=== PATIENT | male | born 1980 | race Caucasian/White ===

== ENCOUNTER 2017-04-13 17:56 | Emergency (ER) | payer OTHER ==
[~2017-04-13] VITALS: Ht 170.2 cm; Wt 72.0 kg
[~2017-04-13 17:56] MED LIST: HYDR-3533 PO; SULF-154 PO
[2017-04-13 18:08] VITALS: BP 131/80; PULSE 128; RESP 20; O2SAT 99
--- NOTE | 2017-04-13 19:00 | PD ---
HPI Chief Complaint: Psychiatric Symptoms Time Seen by Provider: 18:53 Travel History International Travel<30 days: No Contact w/Intl Traveler<30days: No Traveled to known affect area: No History of Present Illness HPI 36-year-old male here for evaluation of BA. Patient was BA by police after he made suicidal ideations to gas fitter helper. No medical issues. States he was drinking today and got on argument with significant other and made some statements that made the gas fitter helper bring him here. Per BA he made suicidal statements about killing himself with a gun. Denies this. Intoxicated on alcohol. No drugs per patient. History of MRSA. History limited secondary to intoxication. PFSH Past Medical History ADHD: Yes Bipolar Disorder: Yes Anxiety: Yes Depression: Yes Cancer: No Cardiovascular Problems: No Diabetes: No Diminished Hearing: No Endocrine: No Gastrointestinal Disorders: Yes Genitourinary: No Hepatitis: Yes (HEP C) Immune Disorder: No Implanted Vascular Access Dvce: No Musculoskeletal: No Neurologic: No Psychiatric: No Reproductive: No Respiratory: No Integumentary: Yes (Hepatitis) Immunizations Current: Yes Past Surgical History Other Surgery: No (LIVER BIOPSY) Social History Alcohol Use: Yes (6 BEERS/DAY) Tobacco Use: Yes (1 PPD) Substance Use: Yes ([facility]) Allergies-Medications (Allergen,Severity, Reaction): Coded Allergies: *MDRO Multi-Drug Resistant Organism (Verified Adverse Reaction, Unknown, 08/24/15) 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 Reported Meds & Prescriptions Reported Meds & Active Scripts Active Septra Ds (Trimethoprim/Sulfamethoxazole) Tab 1 Tab PO BID Lortab 5 mg/325 mg (Hydrocodone/Acetaminophen 5 mg/325 mg) 1 Tab 1 Tab PO Q8HR PRN Review of Systems ROS Limitations: Intoxication Except as stated in HPI: all other systems reviewed are Neg Physical Exam Exam Limitations: Intoxication Narrative GENERAL: SKIN: Warm and dry. HEAD: Atraumatic. Normocephalic. EYES: Pupils equal and round. No scleral icterus. No injection or drainage. ENT: No nasal bleeding or discharge. Mucous membranes pink and moist. TOngue is midline. No uvula deviation. NECK: Trachea midline. No JVD. CARDIOVASCULAR: Regular rate and rhythm. No murmurs, S3, S4. RESPIRATORY: No accessory muscle use. Clear to auscultation. Breath sounds equal bilaterally. GASTROINTESTINAL: Abdomen soft, non-tender, nondistended. Hepatic and splenic margins not palpable. MUSCULOSKELETAL: Extremities without clubbing, cyanosis, or edema. No obvious deformities. Full ROM of the upper and lower extremities bilaterally. 2+ pulses. NEUROLOGICAL: Awake and alert. No obvious cranial nerve deficits. Motor grossly within normal limits. Five out of 5 muscle strength in the arms and legs. Normal speech. PSYCHIATRIC: Intoxication mood and affect; insight and judgment normal. Data Data Last Documented VS Vital Signs Date Time Temp Pulse Resp B/P Pulse Ox O2 Delivery O2 Flow Rate FiO2 04/13/17 18:08 128 20 131/80 99 Orders Complete Blood Count With Diff (04/13/17 18:19) Comprehensive Metabolic Panel (04/13/17 18:19) Psych Screen (04/13/17 18:19) Drug Screen, Random Urine (04/13/17 18:19) Alcohol (Ethanol) (04/13/17 18:19) Salicylates (Aspirin) (04/13/17 18:19) Tylenol (Acetaminophen) (04/13/17 18:19) Drug Screen, Random Urine (04/13/17 18:18) Alcohol (Ethanol) (04/13/17 18:18) Urinalysis - C+S If Indicated (04/13/17 18:18) MDM Medical Decision Making Medical Screen Exam Complete: Yes Emergency Medical Condition: Yes Medical Record Reviewed: Yes Differential Diagnosis Depression versus suicidal ideation versus anxiety versus adjustment disorder versus mood disorder versus bipolar disorder versus schizophrenia versus paranoid disorder versus psychosis versus substance abuse versus alcohol abuse versus alcohol induced psychosis versus homicidality addition versus cutting versus personality disorder Narrative Course 36-year-old male that presents to the ED for evaluation of psych. Patient was properly examined and was found to have signs and symptoms consistent psychiatric illness. No sign of acute medical distress. Patient does appear to be intoxicated. Patient eminently he wants to leave. Labs were ordered. Patient was medically cleared. Okay to be seen by psych. Mental health screening was discussed with the patient. Diagnosis Primary Impression: Suicidal ideation Thomas Braun Apr 13, 2017 19:00
[2017-04-13 19:12] LABS: AMPHETAMINE, URINE NEG (NEG); BARBITURATES, URINE NEG (NEG); COCAINE, URINE POS (NEG)
[2017-04-13 19:15] VITALS: BP 143/65; PULSE 98; RESP 18; O2SAT 99
[2017-04-13] MEDS ORDERED: HALOPERIDOL LACTATE 5 MG/ML AMP ONE (19:24)
[2017-04-13 19:26] LABS: BLOOD, URINE NEG (NEG); COMMENT (UR) CULT NOT INDICATED; CULTURE IF INDICATED CULT NOT INDICATED; GLUCOSE,URINE NEG (NEG); HYALINE CAST, URINE 5 /lpf (RARE); KETONE, URINE TRACE mg/dL (NEG); MUCUS URINE FEW /lpf (OCC); NITRITE,URINE NEG (NEG); PH, URINE 5.5 (5.0-8.5); URINE COLOR YELLOW (YELLW/STRAW)
[2017-04-13] MEDS ORDERED: HALOPERIDOL LACTATE 5 MG/ML AMP IM ONE (19:30)
--- NOTE | 2017-04-13 19:39 | PD ---
Physical Exam Date Seen by Provider: Apr 13, 2017 Time Seen by Provider: 19:00 Narrative For full H&P please see previous providers note. Data Data Last Documented VS Vital Signs Date Time Temp Pulse Resp B/P Pulse Ox O2 Delivery O2 Flow Rate FiO2 04/13/17 19:15 98 18 143/65 99 Room Air Orders Complete Blood Count With Diff (04/13/17 18:19) Comprehensive Metabolic Panel (04/13/17 18:19) Psych Screen (04/13/17 18:19) Drug Screen, Random Urine (04/13/17 18:19) Alcohol (Ethanol) (04/13/17 18:19) Salicylates (Aspirin) (04/13/17 18:19) Tylenol (Acetaminophen) (04/13/17 18:19) Drug Screen, Random Urine (04/13/17 18:18) Alcohol (Ethanol) (04/13/17 18:18) Urinalysis - C+S If Indicated (04/13/17 18:18) ^ Sitter (04/13/17 19:17) Restraints Non-Violent EJ.Q3H (04/13/17 19:17) Haloperidol Inj (Haldol Inj) (04/13/17 19:30) Haloperidol Inj (Haldol Inj) (04/13/17 19:24) Labs Laboratory Tests Test 04/13/17 04/13/17 04/13/17 18:21 18:25 23:47 Ethyl Alcohol Level 175 MG/DL Urine Color YELLOW Urine Turbidity CLEAR Urine pH 5.5 Urine Specific [place] 1.014 Urine Protein TRACE mg/dL Urine Glucose (UA) NEG mg/dL Urine Ketones TRACE mg/dL Urine Occult Blood NEG Urine Nitrite NEG Urine Bilirubin NEG Urine Urobilinogen 2.0 MG/DL Urine Leukocyte Esterase NEG Urine WBC 2 /hpf Urine Hyaline Casts 5 /lpf Urine Mucus FEW /lpf Microscopic Urinalysis Comment CULT NOT INDICATED Urine Opiates Screen NEG Urine Barbiturates Screen NEG Urine Amphetamines Screen NEG Urine Benzodiazepines Screen NEG Urine Cocaine Screen POS Urine Cannabinoids Screen POS White Blood Count 11.6 TH/MM3 Red Blood Count 5.11 MIL/MM3 Hemoglobin 14.3 GM/DL Hematocrit 43.6 % Mean Corpuscular Volume 85.3 FL Mean Corpuscular Hemoglobin 28.0 PG Mean Corpuscular Hemoglobin 32.9 % Concent Red Cell Distribution Width 14.8 % Platelet Count 193 TH/MM3 Mean Platelet Volume 9.8 FL Neutrophils (%) (Auto) 77.1 % Lymphocytes (%) (Auto) 14.5 % Monocytes (%) (Auto) 7.0 % Eosinophils (%) (Auto) 0.4 % Basophils (%) (Auto) 1.0 % Neutrophils # (Auto) 9.0 TH/MM3 Lymphocytes # (Auto) 1.7 TH/MM3 Monocytes # (Auto) 0.8 TH/MM3 Eosinophils # (Auto) 0.0 TH/MM3 Basophils # (Auto) 0.1 TH/MM3 CBC Comment DIFF FINAL Differential Comment Total Bilirubin 0.3 MG/DL Alkaline Phosphatase 52 U/L Total Protein 8.2 GM/DL Salicylates Level 6.5 MG/DL MDM Supervised Visit with LISA: No Narrative Course Pt was brought to [facility] under a Moreno Act. He became uncooperative and combative. Pt was wandering out of his room not wanting to go back in. His behavior was threatening to staff and put him at risk for self harm. Due to these circumstances pt was placed in 4 point restraints. He continued to roll around in the bed in the restraints threatening to "rip his shoulder". At this time Haldol IM was ordered to prevent self inflicted injury. Diagnosis Primary Impression: Suicidal ideation Kelli Soni Apr 13, 2017 19:39
[2017-04-13 23:54] LABS: BASOPHIL # 0.1 TH/MM3 (0-0.2); EOSINOPHIL % 0.4 % (0.0-4.0); HEMATOCRIT 43.6 % (39.0-51.0); HEMO FLAGS DIFF FINAL; LYMPH % 14.5 % (9.0-44.0); LYMPHOCYTE # 1.7 TH/MM3 (1.0-4.8); MEAN CELL VOLUME 85.3 FL (80.0-100.0); MEAN CORPUSCULAR HGB CONC 32.9 % (32.0-36.0); NEUT % 77.1 % (16.0-70.0); PLATELET COUNT 193 TH/MM3 (150-450); RED BLOOD COUNT 5.11 MIL/MM3 (4.50-5.90); RED CELL DISTRIBUTION WIDTH 14.8 % (11.6-17.2); WHITE BLOOD COUNT 11.6 TH/MM3 (4.0-11.0)
[2017-04-14 00:21] LABS: ALKALINE PHOSPHATASE 52 U/L (45-117); TOTAL BILIRUBIN ADULT 0.3 MG/DL (0.2-1.0)
[2017-04-14 00:33] LABS: ALT (GPT) 29 U/L (12-78); ANION GAP 9 MEQ/L (5-15); AST (GOT) 30 U/L (15-37); BICARBONATE 24.6 MEQ/L (21.0-32.0); BLOOD UREA NITROGEN 13 MG/DL (7-18); CHLORIDE 109 MEQ/L (98-107); GLOMERULAR FILTRATION RATE 72 ML/MIN (>89); SODIUM (NA) 143 MEQ/L (136-145)
[2017-04-14 00:40] LABS: POTASSIUM 3.7 MEQ/L (3.5-5.1)
[2017-04-14 00:41] LABS: ACETAMINOPHEN LESS THAN 2.0 MCG/ML (10.0-30.0)
[2017-04-14 01:33] VITALS: BP 116/72; PULSE 80; RESP 16; O2SAT 99
[2017-04-14 06:24] VITALS: BP 116/70; PULSE 78; RESP 18; O2SAT 99
--- NOTE | 2017-04-14 10:14 | PD ---
History of Present Illness Chief Complaint: Psychiatric Symptoms Time Seen by Provider: 10:15 Travel History International Travel<30 Days: No Contact w/Intl Traveler<30days: No Known affected area: No Legal Status Legal Status: Moreno Act Moreno Act Signed By: Marisabel Duarte History of Present Illness: History of Present Illness HPI 36-year-old male with hx of alcohol and substance use disorder here under a BA initiated by JOSHUA. Patient was BA by police after he made suicidal ideations to line maintenance technician. As per the report the patient called the police to report that there was a male running around his neighborhood. When the police arrived he told them that he wanted to be arrested and made claims to have a gun and a knife in his possession and wanted the police to shoot him. He then staed that he wanted to by any means possible. The patient was intoxicated at the time he made the statements and presented to ED with BAL 175 and positive toxicology for cocaine and cannabinoids. EMR is reviewed. Prior contact with [facility] in 2014 under a BA for similar reasons and then in 2013 a voluntary visit for depression. He has not had any psychiatric admissions as an adult. Alert and oriented x4. At this time he is clinically sober. His speech is clear and logical. He does not appear to be responding to internal stimuli. Can I go home? I said what I said because I wanted to get away from my situation. The copying machine mechanic wouldn't take me if I didn't say that I wanted to hurt myself ". He reports that he was involved in a difficult situation at home and wanted to leave the situation. PFSH Past Medical History ADHD: Yes Bipolar Disorder: Yes Anxiety: Yes Depression: Yes Cancer: No Cardiovascular Problems: No Diabetes: No Diminished Hearing: No Endocrine: No Gastrointestinal Disorders: Yes Genitourinary: No Hepatitis: Yes (HEP C) Immune Disorder: No Implanted Vascular Access Dvce: No Musculoskeletal: No Neurologic: No Psychiatric: No Reproductive: No Respiratory: No Integumentary: Yes (Hepatitis) Immunizations Current: Yes Past Surgical History Other Surgery: No (LIVER BIOPSY) Psychiatric History Psychiatric History Hx Psychiatric Treatment: ADHD, DEPRESSION, ANXIETY, INTERMITTENT EXPLOSIVE DISORDER Receives medication from [facility]. Next appointmet April 28- . History of Inpatient Treatment: Yes Guns or firearms in home: No Social History single male. Lives with his girlfriend. Hx Alcohol Use: Yes (6 BEERS/DAY) Hx Tobacco Use: Yes (1 PPD) Hx Substance Use: Yes (OCCAISIONAL MARJUANA, herion, cocaine ) Substance Use Type: Alcohol, Cocaine Hx of Substance Use Treatment: No Family Psychiatric History negative Allergies-Medications (Allergen,Severity, Reaction): Coded Allergies: *MDRO Multi-Drug Resistant Organism (Verified Adverse Reaction, Unknown, 08/24/15) 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 Reported Meds & Prescriptions Reported Meds & Active Scripts Active Review of Systems Except as stated in HPI: all other systems reviewed are Neg Exam Alert: Yes Piru: Person (ox4) Mood: Calm Affect: Appropriate Speech: Clear, Logical Eye Contact: Normal Memory Intact: Comment (no impairmetn) Hallucinations: Other (negative) Delusions: No Suicidal: Ideation (deneis any) Homicidal: Ideation (deneis any) Insight/Judgement Poor. Poor MDM Medical Decision Making Medical Record Reviewed: Yes Assessment/Plan 36 year old male with hx of substance use as well as hx of depression, adhd and IED who in context of alcohol and cocaine intoxication called the police and reported suicidal ideation. At this time the patient is clinically sober and he admits to having fabricated suicidality in order to leave a specific situation and come to the hospital. At this time he is requesting discharge At this time not suicidal or homicidal, no psychosis. Does not meet criteria for continued BA. Will lift. Discharge and follow up with [facility]. . Orders Complete Blood Count With Diff (04/13/17 18:19) Comprehensive Metabolic Panel (04/13/17 18:19) Psych Screen (04/13/17 18:19) Alcohol (Ethanol) (04/13/17 18:19) Salicylates (Aspirin) (04/13/17 18:19) Tylenol (Acetaminophen) (04/13/17 18:19) Drug Screen, Random Urine (04/13/17 18:18) Alcohol (Ethanol) (04/13/17 18:18) Urinalysis - C+S If Indicated (04/13/17 18:18) ^ Sitter (04/13/17 19:17) Restraints Non-Violent EJ.Q3H (04/13/17 19:17) Haloperidol Inj (Haldol Inj) (04/13/17 19:30) Haloperidol Inj (Haldol Inj) (04/13/17 19:24) Diet Regular Basic (04/14/17 Breakfast) Results Vital Signs Date Time Temp Pulse Resp B/P Pulse Ox O2 Delivery O2 Flow Rate FiO2 04/14/17 06:24 78 18 116/70 99 Room Air 04/14/17 01:33 80 16 116/72 99 Room Air 04/13/17 19:15 98 18 143/65 99 Room Air 04/13/17 18:08 128 20 131/80 99 Laboratory Tests Test 04/13/17 04/13/17 04/13/17 18:21 18:25 23:47 Ethyl Alcohol Level 175 145 Urine Color YELLOW Urine Turbidity CLEAR Urine pH 5.5 Urine Specific [place] 1.014 Urine Protein TRACE Urine Glucose (UA) NEG Urine Ketones TRACE Urine Occult Blood NEG Urine Nitrite NEG Urine Bilirubin NEG Urine Urobilinogen 2.0 Urine Leukocyte Esterase NEG Urine WBC 2 Urine Hyaline Casts 5 Urine Mucus FEW Microscopic Urinalysis Comment CULT NOT INDICATED Urine Opiates Screen NEG Urine Barbiturates Screen NEG Urine Amphetamines Screen NEG Urine Benzodiazepines Screen NEG Urine Cocaine Screen POS Urine Cannabinoids Screen POS White Blood Count 11.6 Red Blood Count 5.11 Hemoglobin 14.3 Hematocrit 43.6 Mean Corpuscular Volume 85.3 Mean Corpuscular Hemoglobin 28.0 Mean Corpuscular Hemoglobin 32.9 Concent Red Cell Distribution Width 14.8 Platelet Count 193 Mean Platelet Volume 9.8 Neutrophils (%) (Auto) 77.1 Lymphocytes (%) (Auto) 14.5 Monocytes (%) (Auto) 7.0 Eosinophils (%) (Auto) 0.4 Basophils (%) (Auto) 1.0 Neutrophils # (Auto) 9.0 Lymphocytes # (Auto) 1.7 Monocytes # (Auto) 0.8 Eosinophils # (Auto) 0.0 Basophils # (Auto) 0.1 CBC Comment DIFF FINAL Differential Comment Sodium Level 143 Potassium Level 3.7 Chloride Level 109 Carbon Dioxide Level 24.6 Anion Gap 9 Blood Urea Nitrogen 13 Creatinine 1.15 Estimat Glomerular Filtration 72 Rate Random Glucose 62 Calcium Level 8.9 Total Bilirubin 0.3 Aspartate Amino Transf 30 (AST/SGOT) Alanine Aminotransferase 29 (ALT/SGPT) Alkaline Phosphatase 52 Total Protein 8.2 Albumin 4.2 Salicylates Level 6.5 Acetaminophen Level LESS THAN 2.0 Diagnosis Primary Impression: Substance induced mood disorder Additional Impressions: alcohol abuse w intoxication Cocaine abuse Psychiatrically Cleared: Yes Disposition: 01 DISCHARGE HOME Condition: Stable Problem Qualifiers Hanna Isbell Apr 14, 2017 10:14
== END 2017-04-14 10:50 | disposition home or self-care (01) ==
LOC: NEDAMB 17:56 → NEPD 04-14 10:50
DX: R45.851 Suicidal ideations (principal); F39 Unspecified mood [affective] disorder; F10.129 Alcohol abuse with intoxication, unspecified; F14.129 Cocaine abuse with intoxication, unspecified; Y90.6 Blood alcohol level of 120-199 mg/100 ml; F17.210 Nicotine dependence, cigarettes, uncomplicated; B19.20 Unspecified viral hepatitis C without hepatic coma; F31.9 Bipolar disorder, unspecified
CPT/HCPCS: 80053; 80307; 81001; 85025; 96372; 99285; J1630

== ENCOUNTER 2017-05-29 15:03 | Emergency (ER) | payer SELFPAY ==
[~2017-05-29] VITALS: Ht 170.2 cm; Wt 72.0 kg
[2017-05-29 15:04] VITALS: BP 143/81; PULSE 113; RESP 16; TEMP 98.3; O2SAT 98
[2017-05-30] MEDS ORDERED: CEPH-460 PO (14:58)
== END 2017-05-29 16:30 | disposition left against medical advice (07) ==
LOC: NED 15:03
DX: R21 Rash and other nonspecific skin eruption (principal); Z53.21 Procedure and treatment not carried out due to patient leaving prior to being seen by health care provider
CPT/HCPCS: 99281

== ENCOUNTER 2017-05-30 11:40 | Emergency (ER) | payer SELFPAY ==
[~2017-05-30] VITALS: Ht 165.1 cm; Wt 70.5 kg
[2017-05-30] MEDS ORDERED: CEPH-460 PO (14:58)
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
== END 2017-05-30 15:15 | disposition home or self-care (01) ==
LOC: NEPK 11:40
DX: S80.812A Abrasion, left lower leg, initial encounter (principal); S80.811A Abrasion, right lower leg, initial encounter; L08.9 Local infection of the skin and subcutaneous tissue, unspecified; B19.20 Unspecified viral hepatitis C without hepatic coma; F90.9 Attention-deficit hyperactivity disorder, unspecified type; F31.9 Bipolar disorder, unspecified; F41.9 Anxiety disorder, unspecified; F17.200 Nicotine dependence, unspecified, uncomplicated; V18.4XXA Pedal cycle driver injured in noncollision transport accident in traffic accident, initial encounter
CPT/HCPCS: 99283

== ENCOUNTER 2017-07-03 13:10 | Emergency (ER) | payer SELFPAY ==
[~2017-07-03 13:10] MED LIST changes: +CEPH-460 PO; -HYDR-3533 PO; -SULF-154 PO
[2017-07-03 13:11] VITALS: BP 143/83; PULSE 99; RESP 15; TEMP 98.2; O2SAT 99
--- NOTE | 2017-07-03 13:21 | PD ---
Physical Exam Time Seen by Provider: 13:18 Narrative 36yo M c/o left foot wound infection. Wound from a week ago and infection started a few days ago. Says he walks a lot and his flip flops rub his feet wrong. Denies fever, vomiting. Patient seen in triage. VS reviewed. Patient awaiting bed placement. Data Data Last Documented VS Vital Signs Date Time Temp Pulse Resp B/P (MAP) Pulse Ox O2 Delivery O2 Flow Rate FiO2 07/03/17 13:11 98.2 99 15 143/83 (103) 99 MDM Supervised Visit with LISA: Kelsey Barnhart Jul 03, 2017 13:21
--- NOTE | 2017-07-03 13:42 | PD ---
HPI Chief Complaint: Skin Problem Time Seen by Provider: 13:42 Travel History International Travel<30 days: No Contact w/Intl Traveler<30days: No Traveled to known affect area: No History of Present Illness HPI 36- year old male presents to the ED complaining of left foot pain. The patient reports that he has been wearing flip flops, and where the shoe rubs against his foot is where the pain is along with an abrasion and ulceration. He reports that he had both for the past week, only now it is getting worse. He reports that he took ibuprofen for the pain, but had no relief. He reports that currently his pain is a 10/10. PFSH Past Medical History ADHD: Yes Bipolar Disorder: Yes Anxiety: Yes Depression: Yes Cancer: No Cardiovascular Problems: No Diabetes: No Diminished Hearing: No Endocrine: No Gastrointestinal Disorders: Yes Genitourinary: No Hepatitis: Yes (HEP C) Immune Disorder: No Implanted Vascular Access Dvce: No Musculoskeletal: No Neurologic: No Psychiatric: No Reproductive: No Respiratory: No Integumentary: Yes (Hepatitis) Immunizations Current: Yes Past Surgical History Other Surgery: No (LIVER BIOPSY) Social History Alcohol Use: No Tobacco Use: No Substance Use: No Allergies-Medications (Allergen,Severity, Reaction): Coded Allergies: *MDRO Multi-Drug Resistant Organism (Verified Adverse Reaction, Unknown, ) 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 Reported Meds & Prescriptions Reported Meds & Active Scripts Active Bactrim DS (Sulfamethoxazole-Trimethoprim) 800-160 Mg Tab 1 Tab PO BID Keflex (Cephalexin) 500 Mg Cap 500 Mg PO Q6H Review of Systems General / Constitutional: No: Fever, Chills, Weight Gain, Weight Loss, Other Eyes: No: Diploplia, Blurred Vision, Photophobia, Drainage, Redness, Foreign Body Sensation, Pain, Tearing, Blind Spots, Visual changes, Blindness, Other HENT: No: Headaches, Vertigo, Lightheadedness, Sore Throat, Rhinitis, Rhinorrhea, Congestion, Nosebleed, Neck Stiffness, Neck Pain, Masses, Gingival Bleeding, Dental Difficulties, Ear Discharge, Earache, Other Cardiovascular: No: Chest Pain or Discomfort, Palpitations, Irregular Rhythm, Tachycardia, Diaphoresis, Syncope, Dyspnea on exertion, Varicosities, Edema, Cyanosis, Varicosities, Phlebitis, Claudication, Other Respiratory: No: Cough, Shortness of Breath, Wheezing, Sneezing, Orthopnea, Hemoptysis, Stridor, Night Sweats, Pleuritic Pain, Other Gastrointestinal: No: Nausea, Vomiting, Diarrhea, Abdominal Pain, Hematemesis, Hematochezia, Constipation, Changes in Bowel Habits, Indigestion, Dysphagia, Loss of Appetite, Other Genitourinary: No: Urgency, Frequency, Dysuria, Nocturia, Hematuria, Decreased Urinary Output, Oliguria, Hesitancy, Dribbling, Incontinence, Pelvic Pain, Flank Pain, Dyspareunia, Discharge, Dysmenorrhea, Menorrhagia, Metorrhagia, Vaginal Bleeding, Other Musculoskeletal: Positive: Pain (Left foot), No: Myalgias, Arthralgias, Limited ROM, Weakness, Cramping, Edema, Atrophy, Other Skin: Positive Other (Ulcer and abrasion to left foot ), No Rash, No Itching, No Dryness, No Lumps, No Hives, No Change in Pigmentation, No Change in nails, No Alopecia, No Lesions, No Breast Lumps, No Breast Tenderness, No Breast Swelling Neurologic: No: Weakness, Dizziness, Syncope, Focal Abnormalities, Coordination Problem, Tremor, Ataxia, Headache, Change in Mentation, Slurred Speech, Paresthesia, Incontinence, Seizures, Sensory Disturbance, Other Psychiatric: No: Anxiety, Depression, Suicidal Ideations, Disorder of Thought, Mood Disorder, Substance Abuse, Homicidal Ideation, Other Endocrine: No: Heat Intolerance, Cold Intolerance, Polyuria, Polydipsia, Other Hematologic/Lymphatic: No: Easy Bruising, Lymph Node Enlargement, Other Physical Exam Narrative GENERAL: AAO x 3. NAD. SKIN: Warm and dry.1 cm healing, mild erythematous ulcer on the left great toe with no ulceration, Healing abrasion on lateral left foot. HEAD: Atraumatic. Normocephalic. EYES: Pupils equal and round. No scleral icterus. No injection or drainage. ENT: No nasal bleeding or discharge. Mucous membranes pink and moist. NECK: Trachea midline. No JVD. CARDIOVASCULAR: Regular rate and rhythm. No S3, S4, or murmurs. RESPIRATORY: No accessory muscle use. Clear to auscultation. Breath sounds equal bilaterally. No wheezes, rales, or rhonchi. GASTROINTESTINAL: Visual inspection normal. MUSCULOSKELETAL: Extremities without clubbing, cyanosis, or edema. No obvious deformities. skin as stated above NEUROLOGICAL: Awake and alert. No obvious cranial nerve deficits. Motor grossly within normal limits. Five out of 5 muscle strength in the arms and legs. Normal speech. PSYCHIATRIC: Appropriate mood and affect; insight and judgment normal. Data Data Last Documented VS Vital Signs Date Time Temp Pulse Resp B/P (MAP) Pulse Ox O2 Delivery O2 Flow Rate FiO2 07/03/17 13:11 98.2 99 15 143/83 (103) 99 Orders Orders Ketorolac Inj (Toradol Inj) (07/03/17 14:00) [facility] Medical Decision Making Medical Screen Exam Complete: Yes Emergency Medical Condition: Yes Medical Record Reviewed: Yes Differential Diagnosis Cellulitis, Soft tissue injury Narrative Course 36-year-old male here with 2 abrasions to his left foot. They are minimally infected. Due to his current living conditions, I will go to treat with course of Bactrim. I advised him that this medication is free at [email or web address]. He can continue to use [id number] ibuprofen and Tylenol as needed for pain. We discussed signs of worsening infection when to return to the ED. Patient verbalized understanding of instructions, questions were answered, and thanked me for their care. I advised them if their condition worsens, please return to the nearest emergency room for further care. Diagnosis Primary Impression: Skin abrasion Patient Instructions: General Instructions Additional Instructions: [place] for worsening signs of infection which include fever, increased redness , increased warmth, purulent drainage, increased swelling or streaking. If any of these develop, please go to the nearest emergency room. Please return to emergency department if your symptoms return or worsen. Follow up with your primary care provider. Take medications as prescribed. Med/Other Pt SpecificInfo: Prescription(s) given Scripts Sulfamethoxazole-Trimethoprim (Bactrim DS) 800-160 Mg Tab 1 TAB PO BID for Infection, #20 TAB 0 Refills Prov: Justin Son MD 07/03/17 Disposition: 01 DISCHARGE HOME Condition: Stable KaterineRadha HAMILTON Jul 03, 2017 13:42
[2017-07-03] MEDS ORDERED: BACT800T5 PO (13:47)
[2017-07-03] MEDS ORDERED: KETOROLAC TROMETHAMINE 60 MG/2 ML (IM) VIAL IM ONE (14:00)
== END 2017-07-03 15:02 | disposition home or self-care (01) ==
LOC: NEPK 13:10
DX: S90.812A Abrasion, left foot, initial encounter (principal); L97.529 Non-pressure chronic ulcer of other part of left foot with unspecified severity; F90.9 Attention-deficit hyperactivity disorder, unspecified type; F31.9 Bipolar disorder, unspecified; F41.9 Anxiety disorder, unspecified; F32.9 Major depressive disorder, single episode, unspecified; Z86.19 Personal history of other infectious and parasitic diseases; X58.XXXA Exposure to other specified factors, initial encounter
CPT/HCPCS: 96372; 99284; J1885

== ENCOUNTER 2017-08-01 18:06 | Emergency (ER) | payer SELFPAY ==
[~2017-08-01] VITALS: Ht 172.7 cm; Wt 64.0 kg
[~2017-08-01 18:06] MED LIST changes: +BACT800T5 PO
[2017-08-01 18:36] VITALS: BP 112/78; PULSE 98; RESP 18; TEMP 97.8; O2SAT 95
[2017-08-01] MEDS ORDERED: SODIUM CHLOR 0.9% 1000 ML INJ 1,000 ML IV SCH (19:43)
[2017-08-01] MEDS ORDERED: SODIUM CHLORIDE 0.9% FLUSH 5 ML FLUSH IV FLUSH PRN (19:45)
--- NOTE | 2017-08-01 19:46 | PD ---
HPI Chief Complaint: Alcohol/Drug Intoxication Time Seen by Provider: 19:42 Travel History International Travel<30 days: No Contact w/Intl Traveler<30days: No Traveled to known affect area: No History of Present Illness HPI 36-year-old male brought in by ambulance after being found sleeping on the grass. EMS system temp to be intoxicated. Patient was left on the ambulance call for about an hour and a half before being brought back to one of my exam rooms. Once he was brought back he is sleeping and opens his eyes to deep painful stimuli, however he does not give any history. When aroused he moves all of his extremities and his pupils are equal and reactive. PFSH Past Medical History ADHD: Yes Bipolar Disorder: Yes Anxiety: Yes Depression: Yes Cancer: No Cardiovascular Problems: No Diabetes: No Diminished Hearing: No Endocrine: No Gastrointestinal Disorders: Yes Genitourinary: No Hepatitis: Yes (HEP C) Immune Disorder: No Implanted Vascular Access Dvce: No Musculoskeletal: No Neurologic: No Psychiatric: No Reproductive: No Respiratory: No Integumentary: Yes (Hepatitis) Immunizations Current: Yes Social History Alcohol Use: Yes (daily beer 2-6) Tobacco Use: Yes (1 ppd) Substance Use: No Allergies-Medications (Allergen,Severity, Reaction): Coded Allergies: *MDRO Multi-Drug Resistant Organism (Verified Adverse Reaction, Unknown, ) 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 Reported Meds & Prescriptions Reported Meds & Active Scripts Active No Active Prescriptions or Reported Medications Review of Systems Except as stated in HPI: all other systems reviewed are Neg Physical Exam Narrative GENERAL: Well-developed, well-nourished, disheveled, sleeping, arousable to deep painful stimuli SKIN: Focused skin assessment warm/dry. HEAD: Atraumatic. Normocephalic. EYES: Pupils equal, round, 4 mm, reactive to light. No scleral icterus. No injection or drainage. ENT: Mucous membranes pink and moist. NECK: Trachea midline. No JVD. CARDIOVASCULAR: Regular rate and rhythm. No murmur appreciated. RESPIRATORY: No accessory muscle use. Clear to auscultation. Breath sounds equal bilaterally. GASTROINTESTINAL: Abdomen soft, non-tender, nondistended. Hepatic and splenic margins not palpable. MUSCULOSKELETAL: No obvious deformities. No clubbing. No cyanosis. No edema. NEUROLOGICAL: Sleeping, arousable to deep painful stimuli. No obvious cranial nerve deficits. Motor grossly within normal limits. Data Data Last Documented VS Vital Signs Date Time Temp Pulse Resp B/P (MAP) Pulse Ox O2 Delivery O2 Flow Rate FiO2 08/01/17 20:04 92 11 120/55 (76) 08/01/17 18:36 97.8 95 Orders Orders Complete Blood Count With Diff (08/01/17 19:43) Comprehensive Metabolic Panel (08/01/17 19:43) Prothrombin Time / Inr (Pt) (08/01/17 19:43) Act Partial Throm Time (Ptt) (08/01/17 19:43) Ct Brain W/O Iv Contrast(Rout) (08/01/17 19:43) Blood Glucose (08/01/17 19:43) Ecg Monitoring (08/01/17 19:43) Iv Access Insert/Monitor (08/01/17 19:43) Oximetry (08/01/17 19:43) Sodium Chloride 0.9% Flush (Ns Flush) (08/01/17 19:45) Sodium Chlor 0.9% 1000 Ml Inj (Ns 1000 M (08/01/17 19:43) Drug Screen, Random Urine (08/01/17 19:43) Alcohol (Ethanol) (08/01/17 19:43) Tylenol (Acetaminophen) (08/01/17 19:43) Salicylates (Aspirin) (08/01/17 19:43) Labs Laboratory Tests Test 08/01/17 20:00 08/01/17 20:10 White Blood Count 5.9 TH/MM3 Red Blood Count 4.59 MIL/MM3 Hemoglobin 13.7 GM/DL Hematocrit 40.7 % Mean Corpuscular Volume 88.8 FL Mean Corpuscular Hemoglobin 29.9 PG Mean Corpuscular Hemoglobin Concent 33.6 % Red Cell Distribution Width 16.7 % Platelet Count 184 TH/MM3 Mean Platelet Volume 8.8 FL Neutrophils (%) (Auto) 65.6 % Lymphocytes (%) (Auto) 23.8 % Monocytes (%) (Auto) 7.3 % Eosinophils (%) (Auto) 2.3 % Basophils (%) (Auto) 1.0 % Neutrophils # (Auto) 3.9 TH/MM3 Lymphocytes # (Auto) 1.4 TH/MM3 Monocytes # (Auto) 0.4 TH/MM3 Eosinophils # (Auto) 0.1 TH/MM3 Basophils # (Auto) 0.1 TH/MM3 CBC Comment DIFF FINAL Differential Comment Prothrombin Time 10.2 SEC Prothromb Time International Ratio 0.9 RATIO Activated Partial Thromboplast Time 25.7 SEC Blood Urea Nitrogen 13 MG/DL Creatinine 0.90 MG/DL Random Glucose 94 MG/DL Total Protein 7.3 GM/DL Albumin 3.4 GM/DL Calcium Level 8.3 MG/DL Alkaline Phosphatase 68 U/L Aspartate Amino Transf (AST/SGOT) 32 U/L Alanine Aminotransferase (ALT/SGPT) 25 U/L Total Bilirubin 0.2 MG/DL Sodium Level 148 MEQ/L Potassium Level 3.5 MEQ/L Chloride Level 115 MEQ/L Carbon Dioxide Level 23.8 MEQ/L Anion Gap 9 MEQ/L Estimat Glomerular Filtration Rate 95 ML/MIN Salicylates Level 4.5 MG/DL Acetaminophen Level LESS THAN 2.0 MCG/ML Ethyl Alcohol Level 394 MG/DL Urine Opiates Screen NEG Urine Barbiturates Screen NEG Urine Amphetamines Screen NEG Urine Benzodiazepines Screen NEG Urine Cocaine Screen NEG Urine Cannabinoids Screen NEG MDM Medical Decision Making Medical Screen Exam Complete: Yes Emergency Medical Condition: Yes Differential Diagnosis Alcohol intoxication, drug intoxication, metabolic abnormality, intracranial abnormality Narrative Course Vital signs reviewed. CBC is unremarkable. CMP is essentially unremarkable. Alcohol level is 394. Tylenol and salicylate levels are negative. Urine drug screen is negative for all drugs tested. CT head: Negative noncontrast head CT. On reassessment the patient is arousable and is ambulatory. He is still very intoxicated. His girlfriend is at the bedside and feels comfortable taking him home and taking care of him. She tells me that he and a friend had been drinking vodka throughout the day today. She states he is not an everyday drinker. Diagnosis Primary Impression: Alcohol intoxication Qualified Codes: F10.920 - Alcohol use, unspecified with intoxication, uncomplicated Referrals: [facility] 2 days Additional Instructions: Follow-up with a primary care physician this week. Return to the emergency department for worsening symptoms or any other concerns. Scripts No Active Prescriptions or Reported Meds Disposition: 01 DISCHARGE HOME Condition: Stable Dylon Trujillo MD Aug 01, 2017 19:46
[2017-08-01 20:04] VITALS: BP 120/55; PULSE 92; RESP 11
[2017-08-01 20:17] LABS: AUTOMATED NEUTROPHIL # 3.9 TH/MM3 (1.8-7.7); BASOPHIL # 0.1 TH/MM3 (0-0.2); EOSINOPHIL # 0.1 TH/MM3 (0-0.4); EOSINOPHIL % 2.3 % (0.0-4.0); HEMATOCRIT 40.7 % (39.0-51.0); HEMO FLAGS DIFF FINAL; LYMPH % 23.8 % (9.0-44.0); LYMPHOCYTE # 1.4 TH/MM3 (1.0-4.8); MEAN CELL VOLUME 88.8 FL (80.0-100.0); MEAN CORPUSCULAR HEMOGLOBIN 29.9 PG (27.0-34.0); MEAN CORPUSCULAR HGB CONC 33.6 % (32.0-36.0); MONO % 7.3 % (0.0-8.0); NEUT % 65.6 % (16.0-70.0); PLATELET COUNT 184 TH/MM3 (150-450); RED BLOOD COUNT 4.59 MIL/MM3 (4.50-5.90); RED CELL DISTRIBUTION WIDTH 16.7 % (11.6-17.2); WHITE BLOOD COUNT 5.9 TH/MM3 (4.0-11.0)
[2017-08-01 20:28] LABS: ANION GAP 9 MEQ/L (5-15); APTT (PATIENT) 25.7 SEC (24.3-30.1); AST (GOT) 32 U/L (15-37); BICARBONATE 23.8 MEQ/L (21.0-32.0); BLOOD UREA NITROGEN 13 MG/DL (7-18); CHLORIDE 115 MEQ/L (98-107); GLOMERULAR FILTRATION RATE 95 ML/MIN (>89); INTERNATIONAL NORMALIZED RATIO 0.9 RATIO; POTASSIUM 3.5 MEQ/L (3.5-5.1); PROTHROMBIN TIME - PATIENT 10.2 SEC (9.8-11.6); SODIUM (NA) 148 MEQ/L (136-145)
[2017-08-01 20:29] LABS: ALT (GPT) 25 U/L (12-78)
[2017-08-01 20:31] LABS: ALKALINE PHOSPHATASE 68 U/L (45-117); TOTAL BILIRUBIN ADULT 0.2 MG/DL (0.2-1.0)
[2017-08-01 20:33] LABS: ACETAMINOPHEN LESS THAN 2.0 MCG/ML (10.0-30.0)
[2017-08-01 20:51] LABS: ALCOHOL 394 MG/DL (0-5)
--- NOTE | 2017-08-01 21:34 | RADRPT ---
EXAM DATE/TIME: 08/01/2017 21:07 [place] COMPARISON: CT BRAIN W/O CONTRAST, June 17, 2015, 14:45. INDICATIONS : Altered mental status with possible overdose. RADIATION DOSE: 30.34 CTDIvol (mGy) MEDICAL HISTORY : Hepatitis C. SURGICAL HISTORY : None. ENCOUNTER: Initial ACUITY: 1 day PAIN SCALE: Non-responsive LOCATION: cranial TECHNIQUE: Multiple contiguous axial images were obtained of the head. Using automated exposure control and adj ustment of the mA and/or kV according to patient size, radiation dose was kept as low as reasonably a chievable to obtain optimal diagnostic quality images. DICOM format image data is available electro nically for review and comparison. FINDINGS: CEREBRUM: The ventricles are normal for age. No evidence of midline shift, mass lesion, hemorrhage or acute in farction. No extra-axial fluid collections are seen. POSTERIOR FOSSA: The cerebellum and brainstem are intact. The 4th ventricle is midline. The cerebellopontine angle i s unremarkable. EXTRACRANIAL: The visualized portion of the orbits is intact. SKULL: The calvaria is intact. No evidence of skull fracture. CONCLUSION: Negative noncontrast head CT. Carlos Eduardo Locke MD on August 01, 2017 at 21:32 Board Certified Radiologist. This report was verified electronically.
== END 2017-08-01 21:57 | disposition home or self-care (01) ==
LOC: NEDAMB 18:06 → NEPD 21:57
DX: F10.129 Alcohol abuse with intoxication, unspecified (principal); F90.9 Attention-deficit hyperactivity disorder, unspecified type; F31.9 Bipolar disorder, unspecified; F41.9 Anxiety disorder, unspecified; B19.20 Unspecified viral hepatitis C without hepatic coma; F17.200 Nicotine dependence, unspecified, uncomplicated
CPT/HCPCS: 70450; 80053; 80307; 85025; 85610; 85730; 96360; 99285; J7030